=== PATIENT | male | born 1970 | race Caucasian/White ===

== ENCOUNTER 2020-07-10 22:33 | Emergency (ER) | payer MEDICAID ==
[~2020-07-10] VITALS: Ht 185.4 cm; Wt 116.2 kg
[2020-07-10 22:42] VITALS: BP 146/95
[2020-07-10] MEDS ORDERED: CEPH250T PO (23:14)
--- NOTE | 2020-07-10 23:28 | NUR ---
WENT IN FOR DC VITALS. HR OF 129. PT DENIES DRUG USE. CHAPARRITA HA AWARE. PT HELD FOR THE TIME RATHER THAN DISCHARGED.
== END 2020-07-10 23:37 | disposition home or self-care (01) ==
LOC: ER 22:34
DX: S10.86XA Insect bite of other specified part of neck, initial encounter (principal); M54.2 Cervicalgia; R22.1 Localized swelling, mass and lump, neck; Z79.2 Long term (current) use of antibiotics; W57.XXXA Bitten or stung by nonvenomous insect and other nonvenomous arthropods, initial encounter; Y93.89 Activity, other specified; Y92.89 Other specified places as the place of occurrence of the external cause; Y99.8 Other external cause status
CPT/HCPCS: 99283

== ENCOUNTER 2020-07-12 00:20 | Emergency (ER) | payer MEDICAID ==
[~2020-07-12] VITALS: Ht 185.4 cm; Wt 109.1 kg
[~2020-07-12 00:20] MED LIST: CEPH250T PO
[2020-07-12] MEDS ORDERED: DOXY100C43 PO (00:54)
[2020-07-12 01:03] VITALS: BP 136/98
== END 2020-07-12 01:04 | disposition home or self-care (01) ==
LOC: ER 00:20
DX: R21 Rash and other nonspecific skin eruption (principal); T36.1X5A Adverse effect of cephalosporins and other beta-lactam antibiotics, initial encounter; R00.0 Tachycardia, unspecified; I10 Essential (primary) hypertension; F17.200 Nicotine dependence, unspecified, uncomplicated; Z88.1 Allergy status to other antibiotic agents; Z79.2 Long term (current) use of antibiotics; Y92.89 Other specified places as the place of occurrence of the external cause
CPT/HCPCS: 99283